=== PATIENT | male | born 1975 | race Hispanic/Latino ===

== ENCOUNTER 2019-06-06 13:49 | Emergency (ER) | payer BC ==
--- NOTE | 2019-06-06 14:54 | RAD REPORT ---
EXAM DESCRIPTION: CT - Head Brain Wo Cont - 06/06/2019 2:47 pm CLINICAL HISTORY: Headache, dizziness, left-sided facial pain COMPARISON: None. TECHNIQUE: Axial 5 mm thick images of the head were obtained without IV contrast. All CT scans are performed using dose optimization technique as appropriate and may include automated exposure control or mA/KV adjustment according to patient size. FINDINGS: No intracranial hemorrhage, mass, edema or shift of mid-line structures. No acute infarcti on changes seen. No abnormal extra-axial fluid collections. Ventricles are normal. Left-sided mastoid air cells are normally aerated. Middle ear is clear. There is opacification of the right side mastoid air cells. Patchy mucosal thickening seen in each maxillary sinus. No air-fluid l evel. No acute bony findings. IMPRESSION: No acute intracranial finding. Right mastoid air cell opacification. Patchy mucosal thickening in the maxillary sinuses.
[2019-06-06] MEDS ORDERED: KETOROLAC 30 MG/ML INJ ONE (15:54)
[2019-06-06] MEDS ORDERED: dexAMETHasone 10 MG/ML VIAL ONE (15:54)
[2019-06-06] MEDS ORDERED: NA CHLORIDE 0.9% 1,000 ML ONE (15:54)
[2019-06-06] MEDS ORDERED: NA CHLORIDE 0.9% 50 ML IV ONE (15:54)
[2019-06-06] MEDS ORDERED: METOCLOPRAMIDE 10 MG/2mL INJ ONE (15:54)
[2019-06-06] MEDS ORDERED: DIPHENHYDRAMINE 50 MG/ML VIAL ONE (15:54)
[2019-06-06 16:42] LABS: Absolute Lymphocytes (CBC) 2.6 K/uL (0.7-4.9); Basophils % 0.6 % (0-1.3); Hematocrit 48.6 % (39.6-49.0); Lymphocytes % 30.5 % (15.3-44.8); MPV 8.6 fL (7.6-11.3); RBC Red Blood Cell Count 5.17 M/uL (4.33-5.43)
[2019-06-06 16:59] LABS: Albumin 4.4 g/dL (3.4-5.0); Bilirubin Direct 0.3 mg/dL (0-0.2); Bilirubin Total 1.4 mg/dL (0.2-1.0); Potassium 3.7 mmol/L (3.5-5.1); Protein, Total 8.2 g/dL (6.4-8.2)
--- NOTE | 2019-06-06 17:05 | ER ---
Nurse's Notes [facility] Name: Hayden Armando Age: 44 yrs Sex: Male : 1975 Arrival Date: 06/06/2019 Time: 13:57 Bed 14 Private MD: Diagnosis: Headache Presentation: 06/06 14:32 Presenting complaint: Patient states: Dizziness for the past 2 days, today he started aj1 to have a sharp pain that radiates down the left side of his face and down into his neck. Reports generalized weakness Ambulated to triage with a steady gait, speech is clear. He spoke to his doctor who advised him to come to the emergency. Transition of care: patient was not received from another setting of care. Onset of symptoms was June 04, 2019. Risk Assessment: Do you want to hurt yourself or someone else? Patient reports no desire to harm self or others. Initial Sepsis Screen: Does the patient meet any 2 criteria? HR > 90 bpm. No. Patient's initial sepsis screen is negative. Does the patient have a suspected source of infection? No. Patient's initial sepsis screen is negative. Care prior to arrival: None. 14:32 Method Of Arrival: Ambulatory aj1 14:32 Acuity: FREDI 3 aj1 Triage Assessment: 14:34 Headache History: Denies prior headaches. General: Appears in no apparent distress. aj1 uncomfortable, Behavior is calm. Pain: Complains of pain in left cheek, left eye, left catholic, left jaw and neck Pain does not radiate. Pain currently is 8 out of 10 on a pain scale. Quality of pain is described as sharp, Pain began 2-3 days ago. Also complains of dizziness. Neuro: Level of Consciousness is awake, alert, obeys commands, Oriented to person, place, time, situation, Moves all extremities. Gait is steady, Speech is normal, Facial symmetry appears normal, Reports dizziness, headache. Cardiovascular: Patient's skin is warm and dry. Respiratory: Airway is patent Respiratory effort is even, unlabored, Respiratory pattern is regular, symmetrical. Historical: - Allergies: 14:34 No Known Allergies; aj1 - Home Meds: 16:15 atorvastatin 40 mg oral tab 1 tab once daily [Active]; lisinopril 40 mg Oral tab 1 tab ph once daily [Active]; chlorthalidone 25 mg Oral tab 1 tab once daily [Active]; carvedilol 6.25 mg oral tab 1 tab 2 times per day [Active]; - PMHx: 14:34 Myocardial infarction; 5 cardiac stents; Hypertension; aj1 - Immunization history:: Adult Immunizations unknown. - Social history:: Smoking status: Patient/guardian denies using tobacco. - Ebola Screening: : Patient denies travel to an Ebola-affected area in the 21 days before illness onset. Screenin:26 Abuse screen: Denies threats or abuse. Denies injuries from another. Nutritional ph screening: No deficits noted. Tuberculosis screening: No symptoms or risk factors identified. Fall Risk None identified. Assessment: 15:15 General: Appears in no apparent distress. uncomfortable, obese, well groomed, Behavior ph is calm, cooperative, appropriate for age, Denies fever, feeling ill. Pain: Complains of pain in left catholic and left eye. Neuro: Level of Consciousness is awake, alert, obeys commands, Oriented to person, place, time, situation, Reports dizziness, headache in left frontal area, photophobia. Cardiovascular: Capillary refill < 3 seconds in bilateral fingers Patient's skin is warm and dry. Respiratory: Airway is patent Respiratory effort is even, unlabored, Respiratory pattern is regular, symmetrical. Derm: Skin is intact, is healthy with good turgor, Skin is pink, warm \T\ dry. Musculoskeletal: Circulation, motion, and sensation intact. Range of motion: intact in all extremities. 16:30 Reassessment: Patient appears in no apparent distress at this time. Patient and/or ph family updated on plan of care and expected duration. Pain level reassessed. Patient is alert, oriented x 3, equal unlabored respirations, skin warm/dry/pink. Pt resting quietly. 17:36 Reassessment: Patient appears in no apparent distress at this time. Patient and/or ph family updated on plan of care and expected duration. Pain level reassessed. Patient is alert, oriented x 3, equal unlabored respirations, skin warm/dry/pink. Vital Signs: 14:34 BP 147 / 97; Pulse 98; Resp 18; Temp 98.7; Pulse Ox 100% on R/A; Weight 117.93 kg (R); aj1 Height 5 ft. 9 in. (175.26 cm) (R); 16:25 BP 158 / 97; Pulse 74; Resp 18; Pulse Ox 98% ; Pain 6/10; ph 17:32 BP 151 / 89; Pulse 81; Resp 18; Temp 98.0; Pulse Ox 99% on R/A; Pain 2/10; ph 14:34 Body Mass Index 38.39 (117.93 kg, 175.26 cm) aj1 [place] Coma Score: 17:04 Eye Response: spontaneous(4). Verbal Response: oriented(5). Motor Response: obeys cp commands(6). Total: 15. ED Course: 13:57 Patient arrived in ED. as 14:33 Triage completed. aj1 14:34 Arm band placed on Patient placed in waiting room, Patient notified of wait time. aj1 14:47 Lily Graham, RN is Primary Nurse. ph 14:48 CT Head Brain wo Cont In Process Unspecified. EDMS 15:24 Ayan Monteiro PA is PHCP. cp 15:24 Ayan Easley MD is Attending Physician. cp 16:26 Patient has correct armband on for positive identification. Bed in low position. Call ph light in reach. Side rails up X 1. Pulse ox on. NIBP on. Door closed. Noise minimized. Lights dimmed. Warm blanket given. 16:26 Inserted saline lock: 20 gauge in right antecubital area, using aseptic technique. ph Blood collected. 17:32 No provider procedures requiring assistance completed. IV discontinued, intact, ph bleeding controlled, No redness/swelling at site. Pressure dressing applied. Administered Medications: 16:15 Drug: NS 0.9% 1000 ml Route: IV; Rate: 1 bolus; Site: right antecubital; ph 17:31 Follow up: Response: No adverse reaction; IV Status: Completed infusion ph 16:15 Drug: TORadol 30 mg Route: IVP; Site: right antecubital; ph 17:31 Follow up: Response: No adverse reaction; Pain is decreased ph 16:16 Drug: Benadryl 25 mg Route: IVP; Site: right antecubital; ph 17:31 Follow up: Response: No adverse reaction ph 16:17 Drug: Decadron - Dexamethasone 10 mg Route: IVP; Site: right antecubital; ph 17:31 Follow up: Response: No adverse reaction ph 16:20 Drug: Reglan 10 mg Route: IVP; Site: right antecubital; ph 17:31 Follow up: Response: No adverse reaction; Pain is decreased ph Outcome: 17:05 Discharge ordered by . cp 17:32 Discharged to home ambulatory. ph 17:32 Condition: improved 17:32 Discharge instructions given to patient, Instructed on discharge instructions, follow up and referral plans. medication usage, Demonstrated understanding of instructions, follow-up care, medications, Prescriptions given X 3. 17:37 Patient left the ED. ph Signatures: Dispatcher [employer] EDMS Marcelina Mar RN RN aj1 Tejal Limon Patricia, RN RN ph Ayan Monteiro, PA PA cp Corrections: (The following items were deleted from the chart) 14:36 14:32 Presenting complaint: Patient states: Dizziness for the past 2 days, today he aj1 started to have a sharp pain that radiates down the left side of his face and down into his neck. Reports generalized weakness Ambulated to triage with a steady gait, speech is clear. He spoke to his doctor who advised him to come to the emergency. aj1
--- NOTE | 2019-06-06 17:05 | EDPHYS ---
Physician Documentation [facility] Name: Hayden Armando Age: 44 yrs Sex: Male : 1975 Arrival Date: 06/06/2019 Time: 13:57 Bed 14 Private MD: ED Physician Ayan Easley HPI: 06/06 15:30 This 44 yrs old Male presents to ER via Ambulatory with complaints of cp Headache, Eye Pain. 15:30 The patient complains of pain to the left eye and left side of head. Onset: The cp symptoms/episode began/occurred 2 day(s) ago, and became worse today. 15:30 The patient describes the headache as sharp. Associated signs and symptoms: Pertinent cp positives: dizziness, weakness, Pertinent negatives: altered mental status, fever, neck stiffness, paresthesias, vision loss, vomiting. Severity of symptoms: in the emergency department the pain a " 8" out of "10". Historical: - Allergies: 14:34 No Known Allergies; aj1 - Home Meds: 16:15 atorvastatin 40 mg oral tab 1 tab once daily [Active]; lisinopril 40 mg Oral tab 1 tab ph once daily [Active]; chlorthalidone 25 mg Oral tab 1 tab once daily [Active]; carvedilol 6.25 mg oral tab 1 tab 2 times per day [Active]; - PMHx: 14:34 Myocardial infarction; 5 cardiac stents; Hypertension; aj1 - Immunization history:: Adult Immunizations unknown. - Social history:: Smoking status: Patient/guardian denies using tobacco. - Ebola Screening: : Patient denies travel to an Ebola-affected area in the 21 days before illness onset. ROS: 15:35 Constitutional: Negative for body aches, chills, fever, poor PO intake. cp 15:35 Eyes: Positive for photophobia, left eye pain, Negative for discharge, redness. cp 15:35 Cardiovascular: Negative for chest pain, palpitations. 15:35 Respiratory: Negative for cough, shortness of breath, wheezing. 15:35 Abdomen/GI: Negative for abdominal pain, vomiting, diarrhea, constipation. 15:35 Back: Negative for pain at rest, pain with movement, radiated pain. 15:35 Skin: Negative for cellulitis, rash. 15:35 Neuro: Positive for headache, Negative for altered mental status, numbness, tingling, weakness. 15:35 All other systems are negative. Exam: 15:42 Constitutional: The patient appears in no acute distress, alert, awake, cp non-diaphoretic, non-toxic, well developed, well nourished, obese. 15:42 Head/Face: Normocephalic, atraumatic. cp 15:42 Eyes: Periorbital structures: appear normal, Pupils: equal, round, and reactive to light and accomodation, Extraocular movements: intact throughout, Conjunctiva: normal, no exudate, no injection, Sclera: no appreciated abnormality, Lids and lashes: appear normal, bilaterally. 15:42 ENT: External ear(s): are unremarkable, Ear canal(s): are normal, clear, TM's: bulging, is not appreciated, bilaterally, dullness, bilaterally, erythema, is not appreciated, bilaterally, Nose: is normal, Mouth: is normal, Posterior pharynx: is normal, airway is patent, no erythema, no exudate. 15:42 Neck: ROM/movement: is normal, is supple, without pain, no range of motions limitations, no meningismus, no nuchal rigidity, Lymph nodes: no appreciated lymphadenopathy. 15:42 Chest/axilla: Inspection: normal, Palpation: is normal, no crepitus, no tenderness. 15:42 Cardiovascular: Rate: normal, Rhythm: regular, Edema: is not appreciated, JVD: is not appreciated. 15:42 Respiratory: the patient does not display signs of respiratory distress, Respirations: normal, no use of accessory muscles, no retractions, no splinting, no tachypnea, labored breathing, is not present, Breath sounds: are clear throughout, no decreased breath sounds, no stridor, no wheezing. 15:42 Abdomen/GI: Inspection: abdomen appears normal, Palpation: abdomen is soft and non-tender, in all quadrants. 15:42 Skin: no rash present. 15:42 Neuro: Orientation: to person, place \\T\\ time. Mentation: is normal, Cerebellar function: is grossly normal, Motor: moves all fours, strength is normal, Sensation: no obvious gross deficits. Vital Signs: 14:34 BP 147 / 97; Pulse 98; Resp 18; Temp 98.7; Pulse Ox 100% on R/A; Weight 117.93 kg (R); aj1 Height 5 ft. 9 in. (175.26 cm) (R); 16:25 BP 158 / 97; Pulse 74; Resp 18; Pulse Ox 98% ; Pain 6/10; ph 17:32 BP 151 / 89; Pulse 81; Resp 18; Temp 98.0; Pulse Ox 99% on R/A; Pain 2/10; ph 14:34 Body Mass Index 38.39 (117.93 kg, 175.26 cm) aj1 [place] Coma Score: 17:04 Eye Response: spontaneous(4). Verbal Response: oriented(5). Motor Response: obeys cp commands(6). Total: 15. MDM: 15:24 Patient medically screened. cp 16:00 Differential diagnosis: cluster headache, migraine, otitis, subarachnoid bleed, cp subdural hematoma, tension headache, trigeminal neuralgia. 17:04 Data reviewed: vital signs, nurses notes, lab test result(s), radiologic studies, CT cp scan, and as a result, I will discharge patient. Counseling: I had a detailed discussion with the patient and/or guardian regarding: the historical points, exam findings, and any diagnostic results supporting the discharge/admit diagnosis, lab results, radiology results, the need for outpatient follow up, a family practitioner, to return to the emergency department if symptoms worsen or persist or if there are any questions or concerns that arise at home. Response to treatment: improved, and as a result, I will discharge patient. 06/06 15:32 Order name: Basic Metabolic Panel; Complete Time: 17:01 06/06 17:01 Interpretation: Normal except: GLUC 117; GFR 71. 06/06 15:32 Order name: CBC with Diff; Complete Time: 17: 06/06 14:37 Order name: CT Head Brain wo Cont; Complete Time: 15:31 [facility] 06/06 15:32 Order name: Creatinine for Radiology; Complete Time: 17:01 06/06 15:32 Order name: Hepatic Function; Complete Time: 17:01 06/06 17:01 Interpretation: Normal except: AST 60; ALT 116; BILIT 1.4; BILID 0.3; GLOB 3.8. 06/06 15:32 Order name: IV Saline Lock; Complete Time: 16:28 06/06 15:32 Order name: Labs collected and sent; Complete Time: 16:28 cp Administered Medications: 16:15 Drug: NS 0.9% 1000 ml Route: IV; Rate: 1 bolus; Site: right antecubital; ph 17:31 Follow up: Response: No adverse reaction; IV Status: Completed infusion ph 16:15 Drug: TORadol 30 mg Route: IVP; Site: right antecubital; ph 17:31 Follow up: Response: No adverse reaction; Pain is decreased ph 16:16 Drug: Benadryl 25 mg Route: IVP; Site: right antecubital; ph 17:31 Follow up: Response: No adverse reaction ph 16:17 Drug: Decadron - Dexamethasone 10 mg Route: IVP; Site: right antecubital; ph 17:31 Follow up: Response: No adverse reaction ph 16:20 Drug: Reglan 10 mg Route: IVP; Site: right antecubital; ph 17:31 Follow up: Response: No adverse reaction; Pain is decreased ph Disposition: 17:45 Chart complete. cp Disposition: 06/06/19 17:05 Discharged to Home. Impression: Headache. - Condition is Stable. - Discharge Instructions: General Headache Without Cause. - Prescriptions for Fiorinal 50- 325-40 mg Oral Capsule - take 1 capsule by ORAL route every 4 hours As needed - not to exceed 6 capsules per day; 20 capsule. Ibuprofen 800 mg Oral Tablet - take 1 tablet by ORAL route every 8 hours As needed take with food; 30 tablet. Zofran 4 mg Oral Tablet - take 1 tablet by ORAL route every 12 hours As needed; 20 tablet. - Medication Reconciliation Form, Thank You Letter, Antibiotic Education, Prescription Opioid Use form. - Follow up: Private Physician; When: 2 - 3 days; Reason: Recheck today's complaints. - Problem is new. - Symptoms have improved. Addendum: 06/08/2019 08:16 Co-signature as Attending Physician, Ayan Easley MD I agree with the assessment and c hurst plan of care. Signatures: Dispatcher [employer] Marcelina Vicente RN RN aj1 Ayan Easley MD MD cha Hall, Patricia, RN RN ph Ayan Monteiro PA PA Corrections: (The following items were deleted from the chart) 06/06 17:37 17:05 06/06/2019 17:05 Discharged to Home. Impression: Headache. Condition is Stable. ph Forms are Medication Reconciliation Form, Thank You Letter, Antibiotic Education, Prescription Opioid Use. Follow up: Private Physician; When: 2 - 3 days; Reason: Recheck today's complaints. Problem is new. Symptoms have improved. cp
== END 2019-06-06 17:37 | disposition home or self-care (01) ==
LOC: ER 13:49
DX: R51 Headache (principal); I25.2 Old myocardial infarction; I10 Essential (primary) hypertension; Z95.5 Presence of coronary angioplasty implant and graft
CPT/HCPCS: 96361; 85025; 80048; 36415; 80076; 70450; 96375; 96374; 99284; J2765; J1100; J7030

== ENCOUNTER 2019-10-22 17:13 | Observation (INO) | payer BC, OTHER ==
[2019-10-22 18:00] LABS: Basophils % 0.7 % (0-1.3); Lymphocytes % 27.8 % (15.3-44.8); MPV 8.6 fL (7.6-11.3); RBC Red Blood Cell Count 4.82 M/uL (4.33-5.43)
[2019-10-22 18:02] LABS: Protime INR 1.09
[2019-10-22] MEDS ORDERED: ASPIRIN 81 MG CHEWABLE TABLET ONE (18:02)
[2019-10-22 18:19] LABS: ALT/SGPT 74 U/L (12-78); AST/SGOT 37 U/L (15-37); Alkaline Phosphatase 72 U/L (45-117); BUN Blood Urea Nitrogen 13 mg/dL (7-18); Bicarbonate 29 mmol/L (21-32); Bilirubin Direct 0.3 mg/dL (0-0.2); Bilirubin Total 1.1 mg/dL (0.2-1.0); Glucose Level 93 mg/dL (74-106); Magnesium 1.9 mg/dL (1.8-2.4); NT PRO-BNP 21 pg/mL (<125); Potassium 3.8 mmol/L (3.5-5.1); Protein, Total 7.6 g/dL (6.4-8.2); Sodium Level 139 mmol/L (136-145); Troponin (Emerg Dept Use Only) < 0.02 ng/mL (0.0-0.045)
--- NOTE | 2019-10-22 19:07 | RAD REPORT ---
EXAM DESCRIPTION: RAD - Chest Single View - 10/22/2019 6:47 pm CLINICAL HISTORY: CHEST PAIN COMPARISON: <Comparisons>None. TECHNIQUE: AP portable chest image was obtained 10/22/2019 6:47 pm . FINDINGS: Lung volumes are low. No significant failure or volume overload. No focal lung process. He art and vasculature are normal. No measurable pleural effusion and no pneumothorax. No acute bony abn ormality seen. No acute aortic findings suspected. IMPRESSION: No acute cardiopulmonary process.
--- NOTE | 2019-10-22 20:37 | EDPHYS ---
Physician Documentation [facility] Name: Hayden Armando Age: 44 yrs Sex: Male : 1975 Arrival Date: 10/22/2019 Time: 17:19 Bed 23 Private MD: ED Physician Josh Mojica HPI: 10/22 18:00 This 44 yrs old Male presents to ER via Ambulatory with complaints of Chest la1 Pain, Dizziness. 18:00 The patient or guardian reports chest pain that is located primarily in the substernal la1 area. Onset: this morning. The pain does not radiate. The chest pain is described as squeezing. Duration: The patient or guardian reports multiple episodes, that have now resolved. Modifying factors: The symptoms are alleviated by nothing. the symptoms are aggravated by nothing. Severity of pain: At its worst the pain was moderate. The patient has experienced similar episodes in the past, but today's symptoms are worse, more painful. Pt reports that he has had three episodes of chest pain with associate dizziness, chest pain, shortness of breath. These episodes are worse that the episodes he has experienced in the past. Historical: - Allergies: 17:42 No Known Allergies; iw - Home Meds: 17:42 atorvastatin 40 mg Oral tab 1 tab once daily [Active]; carvedilol 6.25 mg Oral tab 1 iw tab 2 times per day [Active]; lisinopril 40 mg Oral tab 1 tab once daily [Active]; chlorthalidone 25 mg Oral tab 1 tab once daily [Active]; aspirin 81 mg Oral TbEC 1 tab once daily [Active]; - PMHx: 17:42 5 cardiac stents; Hypertension; Myocardial infarction; iw - Immunization history:: Adult Immunizations up to date. - Social history:: Smoking status: Patient denies any tobacco usage or history of. - Ebola Screening: : Patient negative for fever greater than or equal to 101.5 degrees Fahrenheit, and additional compatible Ebola Virus Disease symptoms Patient denies exposure to infectious person Patient denies travel to an Ebola-affected area in the 21 days before illness onset No symptoms or risks identified at this time. ROS: 20:31 Constitutional: Negative for fever, chills, and weight loss, Eyes: Negative for injury, la1 pain, redness, and discharge, ENT: Negative for injury, pain, and discharge, Neck: Negative for injury, pain, and swelling. 20:31 Respiratory: Negative for shortness of breath, cough, wheezing, and pleuritic chest pain, Abdomen/GI: Negative for abdominal pain, nausea, vomiting, diarrhea, and constipation, Back: Negative for injury and pain, MS/Extremity: Negative for injury and deformity, Neuro: Negative for headache, weakness, numbness, tingling, and seizure. 20:31 Cardiovascular: Positive for chest pain, of the chest, has now resolved. Exam: 20:34 Constitutional: This is a well developed, well nourished patient who is awake, alert, la1 and in no acute distress. Head/Face: Normocephalic, atraumatic. Eyes: Periorbital areas with no swelling, redness, or edema. ENT: Mucous membranes moist. Neck: Trachea midline. No Meningismus. Chest/axilla: Normal chest wall appearance and motion. Nontender with no deformity. No lesions are appreciated. Cardiovascular: Regular rate and rhythm with a normal S1 and S2. No gallops, murmurs, or rubs. Normal PMI, no JVD. No pulse deficits. Respiratory: Lungs have equal breath sounds bilaterally, clear to auscultation. No rales, rhonchi or wheezes noted. No increased work of breathing, no retractions or nasal flaring. Abdomen/GI: Soft, non-tender, with normal bowel sounds. No guarding or rebound. No evidence of tenderness throughout. Back: No spinal tenderness. No costovertebral tenderness. Full range of motion. MS/ Extremity: Pulses equal, no cyanosis. Neurovascular intact. Full, normal range of motion. Vital Signs: 17:42 BP 148 / 94; Pulse 84; Resp 16; Temp 98.4; Pulse Ox 98% on R/A; Weight 115.67 kg; iw Height 5 ft. 9 in. (175.26 cm); Pain 8/10; 18:50 BP 141 / 90; Pulse 67; Resp 17 S; Pulse Ox 96% on R/A; ca1 19:45 BP 152 / 103; Pulse 69; Resp 16; Pulse Ox 97% on R/A; jb4 20:58 BP 155 / 97; Pulse 65; Resp 16; Temp 98.1(O); Pulse Ox 99% on R/A; ar5 21:50 BP 140 / 94; Pulse 70; Resp 16; Pulse Ox 98% on R/A; jb4 17:42 Body Mass Index 37.66 (115.67 kg, 175.26 cm) iw MDM: 17:43 Patient medically screened. la1 20:35 Differential diagnosis: acute myocardial infarction, anxiety, coronary artery disease la1 chest wall pain, congestive heart failure gastroesophageal reflux disease (GERD), pericarditis, pleurisy, pneumonia, unstable angina. ECG:. The patient was given aspirin in the Emergency Department. Data reviewed: vital signs, nurses notes, lab test result(s), EKG, radiologic studies, I have discussed the patient's presentation/case with the attending Emergency Department Physician; and as a result, I will admit patient. Data interpreted: Pulse oximetry: on room air is 97 %. Interpretation: normal. Test interpretation: by ED physician or midlevel provider: ECG, plain radiologic studies. Counseling: I had a detailed discussion with the patient and/or guardian regarding: the historical points, exam findings, and any diagnostic results supporting the discharge/admit diagnosis, lab results, radiology results, the need for further work-up and treatment in the hospital. 10/22 17:43 Order name: Basic Metabolic Panel; Complete Time: 18:35 10/22 17:43 Order name: CBC with Diff; Complete Time: 18:07 10/22 17:43 Order name: LFT's; Complete Time: 18:35 10/22 17:43 Order name: Magnesium; Complete Time: 18:35 10/22 17:43 Order name: NT PRO-BNP; Complete Time: 18:35 10/22 17:43 Order name: PT-INR; Complete Time: 18:07 10/22 17:43 Order name: Troponin (emerg Dept Use Only); Complete Time: 18:35 10/22 21:37 Order name: CBC with Automated Diff EDMS 10/22 21:37 Order name: CBC with Automated Diff EDMS 10/22 21:37 Order name: CKMB Creatine Kinase MB EDMS 10/22 21:37 Order name: CKMB Creatine Kinase MB EDMS 10/22 21:37 Order name: CKMB Creatine Kinase MB EDMS 10/22 21:37 Order name: CKMB Creatine Kinase MB EDMS 10/22 21:37 Order name: Troponin I [facility] 10/22 17:43 Order name: XRAY Chest (1 view); Complete Time: 19:17 10/22 21:37 Order name: Echo with Doppler [facility] 10/22 21:37 Order name: Troponin I [facility] 10/22 21:37 Order name: Troponin I [facility] 10/22 21:37 Order name: Troponin I [facility] 10/22 21:37 Order name: Comprehensive Metabolic Panel [facility] 10/22 21:37 Order name: Comprehensive Metabolic Panel [facility] 10/22 21:37 Order name: Protime (+INR) [facility] 10/22 21:37 Order name: Protime (+INR) [facility] 10/22 21:37 Order name: Magnesium [facility] 10/22 21:37 Order name: Magnesium [facility] 10/22 21:37 Order name: Lipid Profile [facility] 10/22 21:37 Order name: Lipid Profile [facility] 10/22 21:37 Order name: Thyroid Stimulating Hormone [facility] 10/22 21:37 Order name: Thyroid Stimulating Hormone [facility] 10/22 21:37 Order name: Urine Drug Screen [facility] 10/22 17:43 Order name: EKG; Complete Time: 17:44 10/22 17:43 Order name: Cardiac monitoring; Complete Time: 18:03 10/22 17:43 Order name: EKG - Nurse/Tech; Complete Time: 18:03 10/22 17:43 Order name: IV Saline Lock; Complete Time: 18:04 10/22 17:43 Order name: Labs collected and sent; Complete Time: 18:04 10/22 17:43 Order name: O2 Per Protocol; Complete Time: 18:04 10/22 17:43 Order name: O2 Sat Monitoring; Complete Time: 18:04 10/22 21:37 Order name: Respiratory Therapy Consult [facility] 10/22 21:37 Order name: Heart Healthy [facility] Administered Medications: 18:02 Drug: Aspirin Chewable Tablet 324 mg Route: PO; ca1 21:34 Follow up: Response: No adverse reaction mg2 Disposition: 10/23 08:13 Co-signature as Attending Physician, Josh Mojica MD. rn Disposition: 10/22/19 20:36 Hospitalization ordered by Marija Hammond for Observation. Preliminary diagnosis is Chest pain, unspecified. - Bed requested for Telemetry/MedSurg (observation). - Status is Observation. jb4 - Condition is Stable. - Problem is new. - Symptoms have improved. UTI on Admission? No Signatures: Dispatcher [employer] EDNatacha Weaver, RN RN Josh Bruce MD MD rn Attema, Lee, CLINICAL APPLICATION SPECIALIST-C CLINICAL APPLICATION SPECIALIST-Cla1 Mendy Garcia RN RN tl1 Chip Fontana RN RN jb4 Zuleima Bolden RN RN ca1 Froy Sherman RN mg2 Corrections: (The following items were deleted from the chart) 10/22 20:55 20:36 Hospitalization Ordered by Marija Hammond MD for Observation. Preliminary diagnosis tl1 is Chest pain, unspecified. Bed requested for Telemetry/MedSurg (observation). Status is Observation. Condition is Stable. Problem is new. Symptoms have improved. UTI on Admission? No. la1 21:58 20:55 10/22/2019 20:36 Hospitalization Ordered by Marija Hammond MD for Observation. jb4 Preliminary diagnosis is Chest pain, unspecified. Bed requested for Telemetry/MedSurg (observation). Status is Observation. Condition is Stable. Problem is new. Symptoms have improved. UTI on Admission? No. tl1
--- NOTE | 2019-10-22 20:37 | ER ---
Nurse's Notes [facility] Name: Hayden Armando Age: 44 yrs Sex: Male : 1975 Arrival Date: 10/22/2019 Time: 17:19 Bed 23 Private MD: Diagnosis: Chest pain, unspecified Presentation: 10/22 17:40 Presenting complaint: Patient states: chest pains earlier today, also feels dizzy, c/o iw left sided chest pain, sharp, hx of NC with 5 stents. Transition of care: patient was not received from another setting of care. Onset of symptoms was October 22, 2019. Risk Assessment: Do you want to hurt yourself or someone else? Patient reports no desire to harm self or others. Initial Sepsis Screen: Does the patient meet any 2 criteria? No. Patient's initial sepsis screen is negative. Does the patient have a suspected source of infection? No. Patient's initial sepsis screen is negative. Care prior to arrival: None. 17:40 Method Of Arrival: Ambulatory iw 17:40 Acuity: FREDI 2 iw Historical: - Allergies: 17:42 No Known Allergies; iw - Home Meds: 17:42 atorvastatin 40 mg Oral tab 1 tab once daily [Active]; carvedilol 6.25 mg Oral tab 1 iw tab 2 times per day [Active]; lisinopril 40 mg Oral tab 1 tab once daily [Active]; chlorthalidone 25 mg Oral tab 1 tab once daily [Active]; aspirin 81 mg Oral TbEC 1 tab once daily [Active]; - PMHx: 17:42 5 cardiac stents; Hypertension; Myocardial infarction; iw - Immunization history:: Adult Immunizations up to date. - Social history:: Smoking status: Patient denies any tobacco usage or history of. - Ebola Screening: : Patient negative for fever greater than or equal to 101.5 degrees Fahrenheit, and additional compatible Ebola Virus Disease symptoms Patient denies exposure to infectious person Patient denies travel to an Ebola-affected area in the 21 days before illness onset No symptoms or risks identified at this time. Screenin:04 Abuse screen: Denies threats or abuse. Denies injuries from another. Nutritional ca1 screening: No deficits noted. Tuberculosis screening: No symptoms or risk factors identified. Fall Risk IV access (20 points). Assessment: 18:04 General: Appears in no apparent distress. comfortable, Behavior is calm, cooperative, ca1 appropriate for age. Pain: Complains of pain in anterior aspect of left upper chest Pain radiates to anterior aspect of left shoulder Pain currently is 5 out of 10 on a pain scale. at worst was 10 out of 10 on a pain scale. Quality of pain is described as sharp, Pain began 11 hours ago Is intermittent. Neuro: Level of Consciousness is awake, alert, obeys commands, Oriented to person, place, time, situation, Appropriate for age. Neuro: Reports dizziness. Cardiovascular: Reports shortness of breath, Heart tones S1 S2 present Capillary refill < 3 seconds Patient's skin is warm and dry. Rhythm is sinus rhythm. Respiratory: Airway is patent Respiratory effort is even, unlabored, Respiratory pattern is regular, symmetrical, Breath sounds are clear bilaterally. GI: Abdomen is round non-distended, Bowel sounds present X 4 quads. Abd is soft and non tender X 4 quads. : No deficits noted. No signs and/or symptoms were reported regarding the genitourinary system. EENT: No deficits noted. No signs and/or symptoms were reported regarding the EENT system. Derm: Skin is intact, is healthy with good turgor, Skin is pink, warm \T\ dry. Musculoskeletal: Circulation, motion, and sensation intact. Capillary refill < 3 seconds, Range of motion: intact in all extremities. 19:08 Reassessment: Patient appears in no apparent distress at this time. Patient and/or jb4 family updated on plan of care and expected duration. Pain level reassessed. Patient is alert, oriented x 3, equal unlabored respirations, skin warm/dry/pink. PT reports feeling better and more calm. Patient states feeling better. 19:11 Reassessment: Patient appears in no apparent distress at this time. No changes from ca1 previously documented assessment. Patient and/or family updated on plan of care and expected duration. Pain level reassessed. Patient is alert, oriented x 3, equal unlabored respirations, skin warm/dry/pink. 20:15 Reassessment: Patient appears in no apparent distress at this time. Patient and/or jb4 family updated on plan of care and expected duration. Pain level reassessed. Patient is alert, oriented x 3, equal unlabored respirations, skin warm/dry/pink. 21:51 Reassessment: Patient appears in no apparent distress at this time. Patient and/or jb4 family updated on plan of care and expected duration. Pain level reassessed. Patient is alert, oriented x 3, equal unlabored respirations, skin warm/dry/pink. Vital Signs: 17:42 BP 148 / 94; Pulse 84; Resp 16; Temp 98.4; Pulse Ox 98% on R/A; Weight 115.67 kg; iw Height 5 ft. 9 in. (175.26 cm); Pain 8/10; 18:50 BP 141 / 90; Pulse 67; Resp 17 S; Pulse Ox 96% on R/A; ca1 19:45 BP 152 / 103; Pulse 69; Resp 16; Pulse Ox 97% on R/A; jb4 20:58 BP 155 / 97; Pulse 65; Resp 16; Temp 98.1(O); Pulse Ox 99% on R/A; ar5 21:50 BP 140 / 94; Pulse 70; Resp 16; Pulse Ox 98% on R/A; jb4 17:42 Body Mass Index 37.66 (115.67 kg, 175.26 cm) iw ED Course: 17:19 Patient arrived in ED. mr 17:41 Triage completed. iw 17:43 Christiano Luther FNP-C is [facility]. la1 17:43 Josh Mojica MD is Attending Physician. la1 17:50 Zuleima Bolden, HEATHER is Primary Nurse. ca1 18:04 Patient has correct armband on for positive identification. Placed in gown. Bed in low ca1 position. Call light in reach. Side rails up X 1. plastic cablemaking machine operator on. Pulse ox on. NIBP on. Warm blanket given. 18:04 No provider procedures requiring assistance completed. Initial lab(s) drawn, by ED ca1 staff, sent to lab. Inserted saline lock: 20 gauge in right antecubital area, using aseptic technique. Blood collected. Patient maintains SpO2 saturation greater than 95% on room air. 18:47 XRAY Chest (1 view) In Process Unspecified. EDMS 19:08 Arm band placed on right wrist. jb4 20:36 Marija Hammond MD is Hospitalizing Provider. la1 21:07 Patient admitted, IV remains in place. jb4 Administered Medications: 18:02 Drug: Aspirin Chewable Tablet 324 mg Route: PO; ca1 21:34 Follow up: Response: No adverse reaction mg2 Outcome: 20:36 Decision to Hospitalize by Provider. la1 21:07 Admitted to Tele accompanied by nurse, via wheelchair, room 410, with chart. jb4 21:07 Condition: stable 21:07 Discharge instructions given to patient, Instructed on the need for admit, Demonstrated understanding of instructions. 21:58 Patient left the ED. jb4 Signatures: Dispatcher [employer] Lala Nuno mr Natacha Quinn, HEATHER RN iw Christiano Luther, PATIENT OFFICE REP-C PATIENT OFFICE REP-Cla1 Chip Fontana RN RN jb4 Froy Sherman RN RN mg2 Cinthia Irby ar5 Zuleima Bolden RN RN ca1
[2019-10-22] MEDS ORDERED: DOCUSATE NA 100 MG CAP PO PRN (21:33)
[2019-10-22] MEDS ORDERED: NITROGLYCERIN 0.4 MG/TAB SL PRN (21:33)
[2019-10-22] MEDS ORDERED: ONDANSETRON 4 MG/2 ML VIAL IV PRN (21:33)
[2019-10-22] MEDS ORDERED: MORPHINE 4 MG/ML SYR IV PRN (21:33)
[2019-10-22] MEDS ORDERED: ACETAMINOPHEN 325 MG TABLET PO PRN (21:33)
--- NOTE | 2019-10-22 21:42 | P.HP ---
Certification for Inpatient Patient admitted to: Observation With expected LOS: <2 Midnights Patient will require the following post-hospital care: None Practitioner: I am a practitioner with admitting privileges, knowledge of patient current condition, hospital course, and medical plan of care. Services: Services provided to patient in accordance with Admission requirements found in Title 42 Section 412.3 of the Code of Federal Regulations Patient History Date of Service: 10/23/19 Reason for admission: chest pain History of Present Illness: fifi stoll is a 44yoM w/ pmhx CAD complicated 5 stents, HTN, HLD, GIGI (non compliant), morbid obesity who presents w/ chest pain. he reports chest pressure w/o radiation similar to the 1 episode of cp he experienced 1 week ago however the difference is that today he had 3 episodes associated w/ dizziness and SOB. he reports that his PCP and cardio are in [place], [place]. he also states that he started have cardiac problems starting 2017 with [facility] hospitalizations 2/2 AMI vs CP. he reports that he has noticed feeling don[place]ue x 1month. he reports that he has not used his CPAP machine for several weeks. he denies fever, chills, cough, sick contacts, N/V, extremity swelling, rashes, sores, orthopnea. he reports that his chest pain symptoms were aggravated w/ lifting and with ambulation. he reports that the chest pain epsiodes lasted 5-10 each episode, resolving on their own. he denies tobacco or etoh or drug use. Allergies No Known Allergies Allergy (Verified 10/22/19 22:20) - Family History Father -: Hypertension, Diabetes Mother -: Liver disease - Social History Smoking Status: Never smoker Alcohol use: No CD- Drugs: No Review of Systems General: Unremarkable Eyes: Unremarkable ENT: Unremarkable Respiratory: SOB with Excertion Cardiovascular: Chest Pain, Light Headedness, As per HPI Gastrointestinal: Unremarkable Genitourinary: Unremarkable Musculoskeletal: Unremarkable Integumentary: Unremarkable Neurological: Other (dizziness) Physical Examination - Physical Exam General: Alert, In no apparent distress, Oriented x3, Cooperative HEENT: Atraumatic Neck: Other (extremely large neck) Respiratory: Normal air movement Cardiovascular: No edema, Normal pulses, No murmurs Capillary refill: <2 Seconds Gastrointestinal: Normal bowel sounds, Soft and benign, Non-distended, No rebound, No guarding Musculoskeletal: No clubbing, No swelling Integumentary: No rashes, No breakdown Neurological: Normal speech, Normal strength at 5/5 x4 extr, Other (gait not tested) External genitalia: Deferred Rectal: Deferred - Studies Laboratory Data (last 24 hrs) 10/22/19 17:50: PT 12.8 H, INR 1.09 10/22/19 17:50: WBC 10.8, Hgb 15.1, Hct 44.0, Plt Count 235 10/22/19 17:50: Sodium 139, Potassium 3.8, BUN 13, Creatinine 1.07, Glucose 93, Magnesium 1.9, Total Bilirubin 1.1 H, AST 37, ALT 74, Alkaline Phosphatase 72 Assessment and Plan - Plan 44yoM admitted w/ chest pain w/ typical s/s admitted to Obs for evaluation tsh, a1c, lipid profile tele, trend CE , supplemental o2 ambulation limited TTE ordered +/- stress test cardio consulted h/o CAD and previous stent placement obtaining CE, labs, on tele for monitoring for arrythmia and will f/u w/ TTE and cardio eval will likely need OSH records. GIGI - pt is non compliant w/ CPAP use RT to eval for CPAP or o2 with sleep morbid obesity pt counsoled on diet and lifestyle changes. dvt ppx- lovenox Discharge Plan: Home - Advance Directives Does patient have a Living Will: No Does patient have a Durable POA for Healthcare: No
[2019-10-22 22:20] VITALS: BMI 40.5
[2019-10-23 01:28] LABS: Barbiturates NEGATIVE (NEGATIVE); Benzodiazepines NEGATIVE (NEGATIVE); Cocaine NEGATIVE (NEGATIVE); METHAMPHETAM NEGATIVE (NEGATIVE); Methadone NEGATIVE (NEGATIVE); Opiates NEGATIVE (NEGATIVE); Phencyclidine NEGATIVE (NEGATIVE); THC Cannibis NEGATIVE (NEGATIVE)
[2019-10-23 02:25] LABS: CKMB Creatine Kinase MB 5.4 ng/mL (0.3-3.6); Troponin I < 0.02 ng/mL (0.0-0.045)
[2019-10-23 04:46] LABS: Hematocrit 43.6 % (39.6-49.0); MPV 8.7 fL (7.6-11.3); RBC Red Blood Cell Count 4.76 M/uL (4.33-5.43)
[2019-10-23 04:47] LABS: Absolute Lymphocytes (CBC) 3.1 K/uL (0.7-4.9); Basophils % 0.6 % (0-1.3); Lymphocytes % 30.4 % (15.3-44.8)
[2019-10-23 05:09] LABS: Protime INR 1.09
[2019-10-23 05:31] LABS: Albumin 3.6 g/dL (3.4-5.0); Bilirubin Total 1.3 mg/dL (0.2-1.0); Magnesium 2.2 mg/dL (1.8-2.4); Potassium 3.7 mmol/L (3.5-5.1); Protein, Total 6.8 g/dL (6.4-8.2)
[2019-10-23 05:39] LABS: Thyroid Stimulating Hormone 4.36 uIU/mL (0.360-3.740)
[2019-10-23] MEDS ORDERED: REGADENOSON 0.4 MG/5 ML SYR IV ONE (08:14)
[2019-10-23] MEDS ORDERED: ENOXAPARIN 40 MG/0.4 ML SQ SCH (09:00)
[2019-10-23] MEDS ORDERED: ASPIRIN 325 MG TAB PO SCH (09:00)
--- NOTE | 2019-10-23 09:57 | RAD REPORT ---
EXAM DESCRIPTION: NM - Rest Stress Cardiac Imaging - 10/23/2019 9:44 am CLINICAL HISTORY: Chest pain COMPARISON: None. TECHNIQUE: The patient was administered approximately 10 mCi of Tc 99m Sestamibi prior to resting SP ECT imaging of the heart. The patient was then administered approximately 30 mCi of Tc 99m Sestamibi following exercise or pharmacologic stress. Multiplanar SPECT images were reviewed. FINDINGS: The end diastolic volume is 114 ml, the end systolic volume is 57 ml, and the ejection fra ction is 50 %. No stress-induced ischemic changes identifiable. Decreased activity along the base and midportion of the inferior wall does not change between rest and stress imaging. This is believed to be diaphragm a ttenuation artifact rather than scarring. IMPRESSION: No stress-induced ischemic change. Decreased activity along the inferior wall is fixed in favored to be diaphragm attenuation artifact r ather than scarring. End-diastolic volume was 114 mL with a 50% EF.
[2019-10-23 10:12] VITALS: O2SAT 97
[2019-10-23 10:25] LABS: CKMB Creatine Kinase MB 4.5 ng/mL (0.3-3.6); Troponin I < 0.02 ng/mL (0.0-0.045)
[2019-10-23 12:11] VITALS: BP 161/91; TEMP 98.2
--- NOTE | 2019-10-23 13:40 | EKG ---
Test Date: 2019-10-22 Test Time: 17:54:53 Glove Examiner: ANTONETTE MEASUREMENT RESULTS: Intervals: Rate: 78 MD: 152 QRSD: 84 QT: 374 QTc: 426 White Owl: P: 32 MD: 152 QRS: -13 T: 18 INTERPRETIVE STATEMENTS: Normal sinus rhythm Minimal voltage criteria for LVH, may be normal variant Borderline ECG No previous ECG available for comparison Electronically Signed On 10-23-19 13:38:04 WASTE MANAGEMENT RECYCLING TECHNICIAN by Fan Wyman
--- NOTE | 2019-10-23 13:42 | CON ---
Date of Consultation: 10/23/[address] Tinsley on 10/22/2019. I saw the patient on 10/23/2019. Reason For Consultation: Dizziness and chest pain. History Of Present Illness: Mr. Armando is 44, has a history of CAD, apparently has had multiple stent s in [place], [place] by Dr. Lewis. He also has a history of dyslipidemia and hypertension. 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 He had left-si ded sharp stabbing chest pain that did not radiate and lasted about 5 minutes. No nausea, vomiting, diaphoresis, PND, orthopnea, pedal edema, palpitations, or syncope. He is already ruled out for an M I. His chest x-ray, EKG, troponin, BNP are all negative. He is asymptomatic now. Past Medical History: As stated above. Allergies: NONE. Review of Systems: Negative. Social History: Negative. Family History: Negative. Medications: Coreg, Lipitor, lisinopril, aspirin, and chlorthalidone. Physical Examination: Vital Signs: Stable. Afebrile. General: No acute distress. HEENT: Negative. Neck: Supple with no bruit. Chest: Clear. Cardiac: Revealed a regular rhythm and rate and an S4 gallop. No murmurs or rubs. Abdomen: Obese, but benign. Extremities: Revealed no clubbing, cyanosis, or edema. Diagnostic Data: Normal. Impression And Plan: Atypical chest pain with dizziness. It could be related to musculoskeletal [address] pain as he was doing some physical work. It could also be related to hypertension. Nevertheless, he was ruled out for myocardial infarction. He goes back and forth to [place] where he lives an d see his rn vascular on a regular basis. His last stress test was 2 years ago. I think an echocar diogram and a stress test are reasonable to do to rule out any restenosis in his stents. We will see what those show. His high blood pressure and dyslipidemia are well controlled. NB/MODL Voice ID: [id number] Report ID: [id number]
--- NOTE | 2019-10-23 14:04 | P.DS ---
Admission Date: 10/22/19 Discharge Date: 10/23/19 Disposition: ROUTINE DISCHARGE Discharge Condition: GOOD Reason for Admission: chest pain Consultations: Staff Certified Nurse Midwife - Problems (1) Chest pain Current Visit: Yes Status: Acute Brief History of Present Illness: "Mr Armando is a 44yoM w/ pmhx CAD complicated 5 stents, HTN, HLD, GIGI (non compliant), morbid obesity who presents w/ chest pain. he reports chest pressure w/o radiation similar to the 1 episode of cp he experienced 1 week ago however the difference is that today he had 3 episodes associated w/ dizziness and SOB. he reports that his PCP and cardio are in [place], [place]. he also states that he started have cardiac problems starting 2017 with [facility] hospitalizations 2/2 AMI vs CP. he reports that he has noticed feeling donahue x 1month. he reports that he has not used his CPAP machine for several weeks. he denies fever, chills, cough, sick contacts, N/V, extremity swelling, rashes, sores, orthopnea. he reports that his chest pain symptoms were aggravated w/ lifting and with ambulation. he reports that the chest pain epsiodes lasted 5-10 each episode, resolving on their own" Hospital Course: Patient was admitted to rule out ACS. Serial troponins were negative with no acute ischemic changes on EKG. He was evaluated by elevator installer apprentice and given his increased factors underwent nuclear stress test which was unremarkable. Echocardiogram was also unremarkable. Patient's pain did resolve. He will be continued on antihypertensive medications at home. She remained hemodynamically stable for discharge and will follow up with his PCP and elevator installer apprentice outpatient. Vital Signs/Physical Exam: Temp Pulse Resp BP Pulse Ox 98.2 F 78 17 161/91 H 95 10/23/19 12:00 10/23/19 12:00 10/23/19 12:00 10/23/19 12:00 10/23/19 12:00 General: Alert, In no apparent distress, Obese HEENT: Atraumatic, PERRLA, EOMI Neck: Supple, JVD not distended Respiratory: Clear to auscultation bilaterally, Normal air movement Cardiovascular: Regular rate/rhythm, Normal S1 S2 Gastrointestinal: Normal bowel sounds, No tenderness Musculoskeletal: No tenderness Integumentary: No rashes Neurological: Normal speech, Normal tone, Normal affect Lymphatics: No axilla or inguinal lymphadenopathy Laboratory Data at Discharge: WBC 10.3 K/uL (4.3-10.9) 10/23/19 04:34 Hgb 15.0 g/dL (13.6-17.9) 10/23/19 04:34 Hct 43.6 % (39.6-49.0) 10/23/19 04:34 Plt Count 210 K/uL (152-406) 10/23/19 04:34 PT 12.8 SECONDS (9.5-12.5) H 10/23/19 04:34 INR 1.09 10/23/19 04:34 Sodium 141 mmol/L (136-145) 10/23/19 04:34 Potassium 3.7 mmol/L (3.5-5.1) 10/23/19 04:34 BUN 15 mg/dL (7-18) 10/23/19 04:34 Creatinine 0.97 mg/dL (0.55-1.3) 10/23/19 04:34 Glucose 91 mg/dL (74-106) 10/23/19 04:34 Magnesium 2.2 mg/dL (1.8-2.4) 10/23/19 04:34 Total Bilirubin 1.3 mg/dL (0.2-1.0) H 10/23/19 04:34 AST 30 U/L (15-37) 10/23/19 04:34 ALT 69 U/L (12-78) 10/23/19 04:34 Alkaline Phosphatase 58 U/L (45-117) 10/23/19 04:34 Troponin I < 0.02 ng/mL (0.0-0.045) 10/23/19 09:56 Triglycerides 225 mg/dL (<150) H 10/23/19 04:34 Cholesterol 173 mg/dL (<200) 10/23/19 04:34 HDL Cholesterol 33 mg/dL (40-60) L 10/23/19 04:34 Cholesterol/HDL Ratio 5.24 10/23/19 04:34 Home Medications: Aspirin [Aspirin EC 81 MG] 81 mg PO DAILY #30 tablet. 10/23/19 Atorvastatin Calcium 40 mg PO DAILY 10/23/19 Chlorthalidone 25 mg PO DAILY 10/23/19 carvediloL [Coreg*] 6.25 mg PO BID 10/23/19 lisinopriL [Lisinopril] 40 mg PO BEDTIME 10/23/19 New Medications: Aspirin [Aspirin EC 81 MG] 81 mg PO DAILY #30 tablet. Diet: AHA Activity: Ad obed Followup: Unknown,U [Primary Care Provider] - 1 Week Hank Salomon MD [ACTIVE - CAN ADMIT] - 1-2 Weeks
--- NOTE | 2019-10-23 14:40 | ECHO ---
HEIGHT: 5 ft 9 in WEIGHT: 274 lb 0 oz DATE OF STUDY: 10/23/[address]: Marija Hammond 2-DIMENSIONAL: YES M.MODE: YES DOPPLER: YES COLOR FLOW: YES TDS: YES PORTABLE: NO DEFINITY: NO BUBBLE STUDY: NO DIAGNOSIS: RECURRENT CHEST PAIN CARDIAC HISTORY: CATHERIZATION: YES SURGERY: NO PROSTHETIC VALVE: NO PACEMAKER: NO MEASUREMENTS (cm) DIASTOLIC (NORMALS) SYSTOLIC (NORMALS) IVSd 1.1 (0.6-1.2) LA Diam 4.0 (1.9-4.0) LVEF 62% LVIDd 4.6 (3.5-5.7) LVIDs 3.1 (2.0-3.5) %FS 33% LVPWd 1.1 (0.6-1.2) Ao Diam 2.0 (2.0-3.7) 2 DIMENSIONAL ASSESSMENT: RIGHT ATRIUM: NORMAL LEFT ATRIUM: NORMAL RIGHT VENTRICLE: NORMAL LEFT VENTRICLE: NORMAL TRICUSPID VALVE: NORMAL MITRAL VALVE: NORMAL PULMONIC VALVE: NORMAL AORTIC VALVE: NORMAL PERICARDIAL EFFUSION: NONE AORTIC ROOT: NORMAL LEFT VENTRICULAR WALL MOTION: NORMAL DOPPLER/COLOR FLOW: NORMAL COMMENTS: NORMAL 2D ECHOCARDIOGRAM WITH DOPPLER. NO WALL MOTION ABNORMALITY. NO EFFUSION. TECHNOLOGIST: Haritha BECERRIL
--- NOTE | 2019-10-23 14:45 | TREADPHA ---
DX: CHEST PAIN, CORONARY ARTERY DISEASE Date of Study: 10/23/2019 Ht: 5 9 Wt: 274 lb 0 oz Consulting Physician: SAMANTHA MEDICATIONS: TYLENOL, ASPIRIN, NITROSTAT, ZOFRAN, LIPITOR, PLAVIX, BLOOD PRESSURE MEDICATION HISTORY: 44 YEAR OLD MALE REPORTED EPISODE OF SHORTNESS OF BREATH, DIZZINESS AND CHEST PAIN. DENIES HAVING CHEST PAIN AT THIS TIME. HISTORY OF STENTS X5, MYOCARIDAL INFARCTION AND HYPERTENSION. PHYSICIAL EXAMINATION: RESTING B.P.: 162/108 RESTING H.R.: 80 RESTING EKG: NORMAL SINUS RHYTHM. PROTOCOL: LEXISCAN EXERCISE TIME: 3:30 B.P. AT PEAK STRESS: 151/104 IMPRESSION: LEXISCAN STRESS TEST PERFORMED. CARDIOLITE INJECTED PER PROTOCOL. NO SUPRAVENTRICULAR TACHYCARDIA, VENTRICULAR TACHYCARDIA OR ARRYTHMIAS NOTED. PATIENT DENIED CHEST PAIN. TOLERATED WELL. SEE NUCLEAR MEDICINE REPORT.
[2019-10-23] MEDS ORDERED: lisinopriL 20 MG TAB PO SCH (21:00)
[2019-10-23] MEDS ORDERED: carvediloL 6.25 MG TAB PO SCH (21:00)
[2019-10-23] MEDS ORDERED: ATORVASTATIN 40 MG TAB PO SCH (21:00)
[2019-10-24] MEDS ORDERED: CHLORTHALIDONE 25 MG TAB PO SCH (09:00)
== END 2019-10-23 15:45 | disposition home or self-care (01) ==
LOC: ER 17:13 → 4TH 21:35
PROVIDERS: ADMIT Internal Medicine; ATTEND Hospitalist
DX: R07.9 Chest pain, unspecified (principal); I25.10 Atherosclerotic heart disease of native coronary artery without angina pectoris; Z95.5 Presence of coronary angioplasty implant and graft; I10 Essential (primary) hypertension; E78.5 Hyperlipidemia, unspecified; G47.33 Obstructive sleep apnea (adult) (pediatric); E66.01 Morbid (severe) obesity due to excess calories; Z68.41 Body mass index [BMI] 40.0-44.9, adult
CPT/HCPCS: 93005; 93017; 93306; 85025 ×2; 80048; 36415; 83735 ×2; 85610 ×2; 80061; 80076; 80307 ×8; 84443; 83036; 84484 ×3; 82553 ×2; 84439; 80053; 83880; 71045; 94760 ×3; 94660; 78452; 99285; J2785; A9500; G0378 ×3; J1650

== ENCOUNTER 2019-12-12 11:21 | Emergency (ER) | payer OTHER ==
[2019-12-12] MEDS ORDERED: ONDANSETRON 4 MG (ODT) TAB ONE (12:23)
--- NOTE | 2019-12-12 12:51 | ER ---
Nurse's Notes [facility] Name: Hayden Armando Age: 44 yrs Sex: Male : 1975 Arrival Date: 12/12/2019 Time: 11:23 Bed 13 Private MD: Diagnosis: Nausea and vomiting;Cough Presentation: 12/11 11:50 Chief complaint: Patient states: sore throat and woke up throwing up x 2 days, wanted dm5 to get checked out since he was a cardiac patient. Pt was concerned about coronavirus. Coronavirus screen: The patient has NOT traveled to a country currently being monitored by the [facility] within the last 14 days. Proceed with normal triage procedures. The patient has NOT had contact with any known and/or suspected case of coronavirus. Proceed with normal triage procedures. Ebola Screen: Patient negative for fever greater than or equal to 101.5 degrees Fahrenheit, and additional compatible Ebola Virus Disease symptoms Patient denies exposure to infectious person. Patient denies travel to an Ebola-affected area in the 21 days before illness onset. No symptoms or risks identified at this time. Initial Sepsis Screen: Does the patient meet any 2 criteria? No. Patient's initial sepsis screen is negative. Does the patient have a suspected source of infection? No. Patient's initial sepsis screen is negative. Risk Assessment: Do you want to hurt yourself or someone else? Patient reports no desire to harm self or others. 11:50 Method Of Arrival: Ambulatory dm5 11:50 Acuity: FREDI 3 dm5 Historical: - Allergies: 12:24 No Known Allergies; ss - PMHx: 12:24 5 cardiac stents; Hypertension; Myocardial infarction; ss - Immunization history:: Adult Immunizations unknown. - Social history:: Smoking status: Patient denies any tobacco usage or history of. Screenin:28 Abuse screen: Denies threats or abuse. Denies injuries from another. Nutritional ss screening: No deficits noted. Tuberculosis screening: Never had TB. Fall Risk None identified. Assessment: 12:28 General: Appears in no apparent distress. comfortable, Behavior is calm, cooperative, ss Reports fever for 1-2 days, feeling ill for 1-2 days, fatigue for 1-2 days, Denies fever. Pain: Complains of pain in general body aches. Neuro: Level of Consciousness is awake, alert, obeys commands, Oriented to person, place, time, situation. Respiratory: Airway is patent Respiratory effort is even, unlabored, Respiratory pattern is regular, symmetrical, Breath sounds are clear bilaterally. Denies cough, shortness of breath pain with respiration, pain with cough, pain with movement. GI: Reports nausea. EENT: Throat is clear Reports sore throat x 2 days. Derm: Skin is intact, is healthy with good turgor, Skin is dry, Skin is pink, warm \T\ dry. normal. Musculoskeletal: Circulation, motion, and sensation intact. Range of motion: intact in all extremities, Swelling absent. Vital Signs: 11:50 BP 150 / 106; Pulse 71; Resp 18; Temp 98.6; Pulse Ox 99% on R/A; Weight 122.47 kg; dm5 Height 5 ft. 9 in. (175.26 cm); Pain 0/10; 11:50 Body Mass Index 39.87 (122.47 kg, 175.26 cm) dm5 ED Course: 11:23 Patient arrived in ED. mr 11:26 Christiano Luther FNP-C is [facility]. la1 11:26 Ricky Garcia MD is Attending Physician. la1 11:54 Triage completed. dm5 12:23 Dasha Soto RN is Primary Nurse. ss 12:24 Arm band placed on right wrist. ss 12:28 Patient has correct armband on for positive identification. Bed in low position. Call ss light in reach. 12:56 No provider procedures requiring assistance completed. Patient did not have IV access ss during this emergency room visit. Administered Medications: 12:20 Drug: Zofran (Ondansetron) 4 mg Route: PO; ss 12:56 Follow up: Response: No adverse reaction; Nausea is decreased ss Outcome: 12:49 Discharge ordered by MD. la1 12:56 Discharged to home ambulatory, with family. ss 12:56 Condition: good 12:56 Discharge instructions given to patient, family, Instructed on discharge instructions, follow up and referral plans. medication usage, Demonstrated understanding of instructions, follow-up care, medications, Prescriptions given X 1. 12:57 Patient left the ED. Signatures: Stephanie Nolasco RN RN dm Lala Chambers mr Dasha Soto RN RN Attema, Christiano, SYSTEMS COORDINATOR-C SYSTEMS COORDINATOR-Cla1
--- NOTE | 2019-12-12 12:51 | EDPHYS ---
Physician Documentation [facility] Name: Hayden Armando Age: 44 yrs Sex: Male : 1975 Arrival Date: 12/12/2019 Time: 11:23 Bed 13 Private MD: ED Physician Ricky Garcia HPI: 12/11 12:46 This 44 yrs old Male presents to ER via Ambulatory with complaints of Flu la1 Symptoms. 12:46 Onset: The symptoms/episode began/occurred 2 day(s) ago. Associated signs and symptoms: la1 Pertinent positives: cough, vomiting. Modifying factors: The patient symptoms are alleviated by nothing, the patient symptoms are aggravated by nothing. The patient has not experienced similar symptoms in the past. pt denies travel outside the country or contact with a person who was tested + for gordon virus. Historical: - Allergies: 12:24 No Known Allergies; ss - PMHx: 12:24 5 cardiac stents; Hypertension; Myocardial infarction; ss - Immunization history:: Adult Immunizations unknown. - Social history:: Smoking status: Patient denies any tobacco usage or history of. ROS: 12:47 Constitutional: Negative for fever, chills, and weight loss, Eyes: Negative for injury, la1 pain, redness, and discharge, ENT: Negative for injury, pain, and discharge, Neck: Negative for injury, pain, and swelling, Cardiovascular: Negative for chest pain, palpitations, and edema, Respiratory: + for cough 12:47 Back: Negative for injury and pain, : Negative for injury, bleeding, discharge, and swelling, MS/Extremity: Negative for injury and deformity, Neuro: Negative for headache, weakness, numbness, tingling, and seizure. 12:47 Abdomen/GI: Positive for nausea, vomiting, and diarrhea. Exam: 12:47 Constitutional: This is a well developed, well nourished patient who is awake, alert, la1 and in no acute distress. Head/Face: Normocephalic, atraumatic. ENT: Nares patent. No nasal discharge, no septal abnormalities noted. Tympanic membranes are normal and external auditory canals are clear. Oropharynx with no redness, swelling, or masses, exudates, or evidence of obstruction, uvula midline. Mucous membranes moist. Neck: Trachea midline, no thyromegaly or masses palpated, and no cervical lymphadenopathy. Supple, full range of motion without nuchal rigidity, or vertebral point tenderness. No Meningismus. Chest/axilla: Normal chest wall appearance and motion. Nontender with no deformity. No lesions are appreciated. Cardiovascular: Regular rate and rhythm with a normal S1 and S2. No gallops, murmurs, or rubs. Normal PMI, no JVD. No pulse deficits. Respiratory: Lungs have equal breath sounds bilaterally, clear to auscultation Abdomen/GI: Soft, non-tender, with normal bowel sounds. No distension or tympany. No guarding or rebound. No evidence of tenderness throughout. Back: No spinal tenderness. No costovertebral tenderness. Full range of motion. Skin: Warm, dry with normal turgor. Normal color with no rashes, no lesions, and no evidence of cellulitis. Vital Signs: 11:50 BP 150 / 106; Pulse 71; Resp 18; Temp 98.6; Pulse Ox 99% on R/A; Weight 122.47 kg; dm5 Height 5 ft. 9 in. (175.26 cm); Pain 0/10; 11:50 Body Mass Index 39.87 (122.47 kg, 175.26 cm) dm5 MDM: 11:47 Patient medically screened. la1 12:48 Data reviewed: vital signs, nurses notes, lab test result(s), and as a result, I will la1 discharge patient. Data interpreted: Pulse oximetry: on room air is 99 %. Interpretation: normal. Counseling: I had a detailed discussion with the patient and/or guardian regarding: the historical points, exam findings, and any diagnostic results supporting the discharge/admit diagnosis, lab results, the need for outpatient follow up, a family practitioner, to return to the emergency department if symptoms worsen or persist or if there are any questions or concerns that arise at home. Special discussion: Based on the patient's history, exam, and Dx evaluation, there is no indication for emergent intervention or inpatient Tx. It is understood by the patient/guardian that if the Sx's persist or worsen they need to return immediately for re-evaluation. I discussed with the patient/guardian that the patient's current presentation does not indicate dosing of antibiotics. They should follow-up with their primary care provider and return if the symptoms persist or progress. ED course: pt appears non-toxic, tolerating PO, no resp distress. Will D/C with nausea meds. 12:49 Special discussion: I have referred the patient to see his PCP for further evaluation la1 of high blood pressure. 12/11 11:53 Order name: Flu la1 12/11 11:55 Order name: PO challenge; Complete Time: 12:16 la1 Administered Medications: 12:20 Drug: Zofran (Ondansetron) 4 mg Route: PO; ss 12:56 Follow up: Response: No adverse reaction; Nausea is decreased ss Disposition: 18:00 Co-signature as Attending Physician, Ricky Garcia MD I agree with the assessment and kdr plan of care. Disposition: 12/12/19 12:49 Discharged to Home. Impression: Nausea and vomiting, Cough. - Condition is Stable. - Discharge Instructions: Cough, Adult, Rehydration, Adult. - Prescriptions for Zofran 4 mg Oral Tablet - take 1 tablet by ORAL route every 12 hours As needed; 20 tablet. - Medication Reconciliation Form, Thank You Letter, Work release form form. - Follow up: Private Physician; When: 2 - 3 days; Reason: Recheck today's complaints, Re-evaluation by your physician. - Problem is new. - Symptoms have improved. Signatures: Dispatcher [employer] EDMS Ricky Garcia MD MD [facility] Dasha Soto RN RN ss Christiano Luther, LAY MIDWIFE-C LAY MIDWIFE-Cla1 Corrections: (The following items were deleted from the chart) 12:57 12:49 12/12/2019 12:49 Discharged to Home. Impression: Nausea and vomiting; Cough. ss Condition is Stable. Forms are Medication Reconciliation Form, Thank You Letter, Antibiotic Education, Prescription Opioid Use. Follow up: Private Physician; When: 2 - 3 days; Reason: Recheck today's complaints, Re-evaluation by your physician. Problem is new. Symptoms have improved. la1
[2019-12-12 13:22] VITALS: BP 150/106; TEMP 98.6; O2SAT 99
== END 2019-12-12 12:57 | disposition home or self-care (01) ==
LOC: ER 11:21
DX: R05 Cough (principal); I10 Essential (primary) hypertension; Z95.818 Presence of other cardiac implants and grafts
CPT/HCPCS: 87804; 99283

== ENCOUNTER 2020-04-21 15:50 | Emergency (ER) | payer OTHER ==
--- NOTE | 2020-04-21 16:46 | ER ---
Nurse's Notes [facility] Name: Hayden Armando Age: 44 yrs Sex: Male : 1975 Arrival Date: 04/21/2020 Time: 15:55 Bed 24 Private MD: Diagnosis: Low back pain Presentation: 04/21 16:15 Chief complaint: Patient states: Low back pain radiates to left leg, had spinal fusion jl7 02-24-2020 and reports "I just can't stand the pain today.". Coronavirus screen: Patient denies a cough. Patient denies shortness of breath or difficulty breathing. Patient denies measured and/or subjective temperature greater than 100.4F prior to today's visit. Patient denies travel on a cruise ship or to a country the [facility] currently lists as an affected area. Patient denies contact with known and/or suspected case of COVID-19. Proceed with normal triage. Ebola Screen: No symptoms or risks identified at this time. Initial Sepsis Screen: Does the patient meet any 2 criteria? No. Patient's initial sepsis screen is negative. Does the patient have a suspected source of infection? No. Patient's initial sepsis screen is negative. Risk Assessment: Do you want to hurt yourself or someone else? Patient reports no desire to harm self or others. Onset of symptoms is unknown. Care prior to arrival: None. Transition of care: patient was not received from another setting of care. 16:15 Method Of Arrival: Ambulatory [facility] 16:15 Acuity: FREDI 4 jl7 Triage Assessment: 16:17 General: Appears in no apparent distress. uncomfortable, Behavior is calm, cooperative, jl7 appropriate for age. Pain: Complains of pain in back and left leg Pain currently is 10 out of 10 on a pain scale. Musculoskeletal: Range of motion: limited in left hip and right hip. Historical: - Allergies: 16:17 No Known Allergies; jl7 - PMHx: 16:17 5 cardiac stents; Hypertension; Myocardial infarction; jl7 - PSHx: 16:17 spinal fusion; jl7 - Immunization history:: Adult Immunizations unknown. - Social history:: Smoking status: Patient denies any tobacco usage or history of. Screenin:57 Abuse screen: Denies threats or abuse. Nutritional screening: No deficits noted. vc Tuberculosis screening: No symptoms or risk factors identified. Fall Risk None identified. Assessment: 16:57 General: Appears in no apparent distress. uncomfortable, Behavior is calm, cooperative, vc appropriate for age. Pain: Complains of pain in lumbar area Pain radiates to right hip and left hip Pain currently is 10 out of 10 on a pain scale. Quality of pain is described as sharp, shooting. Pain: Noted to be grimacing, guarding, resistant to movement. Neuro: Level of Consciousness is awake, alert, obeys commands, Oriented to person, place, time, situation, Appropriate for age. Cardiovascular: Capillary refill < 3 seconds Clubbing of nail beds is absent Patient's skin is warm and dry. Respiratory: Airway is patent Respiratory effort is even, unlabored, Respiratory pattern is regular, symmetrical. GI: No signs and/or symptoms were reported involving the gastrointestinal system. : No signs and/or symptoms were reported regarding the genitourinary system. Musculoskeletal: Reports pain in lumbar area. 16:57 Reassessment: Patient to be discharged after shot time. vc 17:22 Reassessment: Patient appears in no apparent distress at this time. Patient and/or vc family updated on plan of care and expected duration. Pain level reassessed. Patient is alert, oriented x 3, equal unlabored respirations, skin warm/dry/pink. Patient states feeling better. Patient states symptoms have improved. Vital Signs: 16:15 BP 163 / 105; Pulse 91; Resp 17; Temp 98.4; Pulse Ox 99% ; Weight 123.38 kg; Height 5 jl7 ft. 9 in. (175.26 cm); Pain 10/10; 16:15 Body Mass Index 40.17 (123.38 kg, 175.26 cm) jl7 ED Course: 15:55 Patient arrived in ED. mr 16:14 Enrrique Martinez, RN is Primary Nurse. jl7 16:17 Triage completed. jl7 16:17 Arm band placed on right wrist. jl7 16:38 Nguyen Williamson FNP-C is PHCP. kb 16:38 Josh Mojica MD is Attending Physician. kb 16:39 Micah Rodriguez, HEATHER is Primary Nurse. ll1 16:57 Patient has correct armband on for positive identification. Bed in low position. Call vc light in reach. 16:57 No provider procedures requiring assistance completed. Patient did not have IV access vc during this emergency room visit. Administered Medications: 16:57 Drug: [place] 10 mg-325 mg 1 tabs Route: PO; vc 17:22 Follow up: Response: No adverse reaction vc 16:57 Drug: TORadol 30 mg Route: IM; Site: left deltoid; vc 17:22 Follow up: Response: No adverse reaction vc Outcome: 16:46 Discharge ordered by . анна 17:22 Discharged to home ambulatory. vc 17:22 Condition: good 17:22 Discharge instructions given to patient, Instructed on discharge instructions, follow up and referral plans. no drinking with medication, no driving heavy equipment, medication usage, Demonstrated understanding of instructions, follow-up care, medications, Prescriptions given X 2. 17:22 Patient left the ED. vc Signatures: Nguyen Williamson, HAMID[employer] AGRISCIENCE TECHNOLOGY INSTRUCTOR-Lala An Enrrique Martinez RN RN jl7 Leilani Fraser RN RN vc Lewis, Lynsay RN RN ll1
--- NOTE | 2020-04-21 16:46 | EDPHYS ---
Physician Documentation [facility] Name: Hayden Armando Age: 44 yrs Sex: Male : 1975 Arrival Date: 04/21/2020 Time: 15:55 Bed 24 Private MD: ED Physician Josh Mojica HPI: 04/21 16:44 This 44 yrs old Male presents to ER via Ambulatory with complaints of Back kb Pain. 16:44 The patient presents with pain that is acute. The symptoms are located in the low back. kb Onset: The symptoms/episode began/occurred 2 month(s) ago. The pain radiates to the right leg and left leg. Associated signs and symptoms: Pertinent negatives: constipation, incontinence, numbness, tingling, urinary retention. The problem was sustained without known cause. Modifying factors: The patient symptoms are alleviated by nothing, the patient symptoms are aggravated by any movement. Severity of symptoms: At their worst the symptoms were moderate, in the emergency department the symptoms are unchanged. The patient has not experienced similar symptoms in the past. The patient has not recently seen a physician. Pt reports he had a fusion done from L4-S1 with 4 screws placed at the end of January. States the pain over the last few days feels the same as the first day postop. States he has been taking the prescribed pain medication (gabapentin) without relief. Historical: - Allergies: 16:17 No Known Allergies; jl7 - PMHx: 16:17 5 cardiac stents; Hypertension; Myocardial infarction; jl7 - PSHx: 16:17 spinal fusion; jl7 - Immunization history:: Adult Immunizations unknown. - Social history:: Smoking status: Patient denies any tobacco usage or history of. ROS: 16:42 Constitutional: Negative for fever, chills, and weight loss, Cardiovascular: Negative kb for chest pain, palpitations, and edema, Respiratory: Negative for shortness of breath, cough, wheezing, and pleuritic chest pain, Abdomen/GI: Negative for abdominal pain, nausea, vomiting, diarrhea, and constipation, : Negative for injury, bleeding, discharge, and swelling, MS/Extremity: Negative for injury and deformity, Skin: Negative for injury, rash, and discoloration, Neuro: Negative for headache, weakness, numbness, tingling, and seizure. 16:42 Back: Positive for pain at rest, pain with movement, of the lumbar area and low back area. Exam: 16:42 Constitutional: This is a well developed, well nourished patient who is awake, alert, kb and in no acute distress. Head/Face: Normocephalic, atraumatic. Chest/axilla: Normal chest wall appearance and motion. Nontender with no deformity. No lesions are appreciated. Cardiovascular: Regular rate and rhythm with a normal S1 and S2. No gallops, murmurs, or rubs. Normal PMI, no JVD. No pulse deficits. Respiratory: Lungs have equal breath sounds bilaterally, clear to auscultation and percussion. No rales, rhonchi or wheezes noted. No increased work of breathing, no retractions or nasal flaring. Abdomen/GI: Soft, non-tender, with normal bowel sounds. No distension or tympany. No guarding or rebound. No evidence of tenderness throughout. Skin: Warm, dry with normal turgor. Normal color with no rashes, no lesions, and no evidence of cellulitis. MS/ Extremity: Pulses equal, no cyanosis. Neurovascular intact. Full, normal range of motion. Neuro: Awake and alert, GCS 15, oriented to person, place, time, and situation. Cranial nerves II-XII grossly intact. Motor strength 5/5 in all extremities. Sensory grossly intact. Cerebellar exam normal. Normal gait. 16:42 Back: pain, that is moderate, ROM is painful, normal spinal alignment noted, vertebral tenderness, is not appreciated, surgical incision well healed. Vital Signs: 16:15 BP 163 / 105; Pulse 91; Resp 17; Temp 98.4; Pulse Ox 99% ; Weight 123.38 kg; Height 5 jl7 ft. 9 in. (175.26 cm); Pain 10/10; 16:15 Body Mass Index 40.17 (123.38 kg, 175.26 cm) jl7 MDM: 16:38 Patient medically screened. kb 16:42 Data reviewed: vital signs, nurses notes. Data interpreted: Pulse oximetry: on room air kb is 99 %. Interpretation: normal. Counseling: I had a detailed discussion with the patient and/or guardian regarding: the historical points, exam findings, and any diagnostic results supporting the discharge/admit diagnosis, the need for outpatient follow up, a family practitioner, to return to the emergency department if symptoms worsen or persist or if there are any questions or concerns that arise at home. Administered Medications: 16:57 Drug: Meridian 10 mg-325 mg 1 tabs Route: PO; vc 17:22 Follow up: Response: No adverse reaction vc 16:57 Drug: TORadol 30 mg Route: IM; Site: left deltoid; vc 17:22 Follow up: Response: No adverse reaction vc Disposition: 17:40 Co-signature as Attending Physician, Josh Mojica MD. rn Disposition: 04/21/20 16:46 Discharged to Home. Impression: Low back pain. - Condition is Stable. - Discharge Instructions: Back Injury Prevention, [id number], Back Pain, Adult, [id number]. - Prescriptions for Tramadol 50 mg Oral Tablet - take 1 tablet by ORAL route every 8 hours as needed; 12 tablet. orphenadrine citrate 100 mg Oral Tablet Sustained Release - take 1 tablet by ORAL route 2 times per day As needed; 20 tablet. - Medication Reconciliation Form, Thank You Letter, Antibiotic Education, Prescription Opioid Use form. - Follow up: Emergency Department; When: As needed; Reason: Worsening of condition. Follow up: Private Physician; When: 2 - 3 days; Reason: Recheck today's complaints, Continuance of care, Re-evaluation by your physician. Signatures: Nguyen Williamson, [employer]-C [employer]-Ckb Josh Mojica MD MD rn Leal, Jahala, RN RN jl7 Leilani Fraser RN RN vc Corrections: (The following items were deleted from the chart) 17:22 16:46 04/21/2020 16:46 Discharged to Home. Impression: Low back pain. Condition is vc Stable. Forms are Medication Reconciliation Form, Thank You Letter, Antibiotic Education, Prescription Opioid Use. Follow up: Emergency Department; When: As needed; Reason: Worsening of condition. Follow up: Private Physician; When: 2 - 3 days; Reason: Recheck today's complaints, Continuance of care, Re-evaluation by your physician. kb
[2020-04-21] MEDS ORDERED: HYDROCODONE/APAP 10/325 TAB ONE (17:02)
[2020-04-21] MEDS ORDERED: KETOROLAC 30 MG/ML INJ ONE (17:02)
[2020-04-21 23:12] VITALS: BP 163/105; TEMP 98.4; O2SAT 99
== END 2020-04-21 17:22 | disposition home or self-care (01) ==
LOC: ER 15:50
DX: M54.5 Low back pain (principal)
CPT/HCPCS: 96372; 99283

== ENCOUNTER 2020-04-29 18:11 | Emergency (ER) | payer OTHER, BC ==
--- NOTE | 2020-04-29 20:54 | RAD REPORT ---
EXAM DESCRIPTION: RAD - Chest Single View - 04/29/2020 8:47 pm CLINICAL HISTORY: COUGH Chest pain. COMPARISON: <Comparisons> FINDINGS: Portable technique limits examination quality. Subtle mildly prominent interstitial lung markings are seen. Interstitial/viral pneumonitis is suspec vero. The heart is normal in size. No displaced fractures.
--- NOTE | 2020-04-29 21:01 | ER ---
Nurse's Notes [facility] Name: Hayden Armando Age: 44 yrs Sex: Male : 1975 Arrival Date: 04/29/2020 Time: 18:14 Bed 16 Private MD: Diagnosis: Viral syndrome;Coronavirus infection, unspecified Presentation: 04/29 19:23 Chief complaint: Patient states: i have fever, dry cough and body ache since Sunday. i mg2 did a test for COVID last Sunday-pending result. Coronavirus screen: Client denies travel out of the [place] in the last 14 days. cough unrelated to allergies, fever. Ebola Screen: No symptoms or risks identified at this time. Initial Sepsis Screen: Does the patient meet any 2 criteria? No. Patient's initial sepsis screen is negative. Does the patient have a suspected source of infection? No. Patient's initial sepsis screen is negative. Risk Assessment: Do you want to hurt yourself or someone else? Patient reports no desire to harm self or others. Onset of symptoms was March 2020. 19:23 Method Of Arrival: Ambulatory mg2 19:23 Acuity: FREDI 4 mg2 Triage Assessment: 19:26 General: Appears in no apparent distress. comfortable, Behavior is calm, cooperative. mg2 Pain: Complains of pain in whole body. EENT: No signs and/or symptoms were reported regarding the EENT system. Neuro: Level of Consciousness is awake, alert, obeys commands, Oriented to person, place, time, situation. Cardiovascular: Capillary refill < 3 seconds Patient's skin is warm and dry. Respiratory: Reports cough that is Airway is patent Respiratory effort is even, unlabored, Respiratory pattern is regular, symmetrical. GI: No signs and/or symptoms were reported involving the gastrointestinal system. : No signs and/or symptoms were reported regarding the genitourinary system. Derm: Skin is intact, is healthy with good turgor, Skin is pink, warm \T\ dry. normal. Musculoskeletal: Circulation, motion, and sensation intact. Capillary refill < 3 seconds. Historical: - Allergies: 19:28 No Known Allergies; mg2 - PMHx: 19:28 5 cardiac stents; Hypertension; Myocardial infarction; mg2 - PSHx: 19:28 back sx; mg2 - Family history:: not pertinent. - Social history:: Smoking status: . - Hospitalizations: : No recent hospitalization is reported. Screenin:27 Abuse screen: Denies threats or abuse. Denies injuries from another. Nutritional mg2 screening: No deficits noted. Tuberculosis screening: No symptoms or risk factors identified. Fall Risk None identified. Assessment: 19:27 General: see triage assessment. mg2 20:42 Reassessment: Patient appears in no apparent distress at this time. Patient and/or mg2 family updated on plan of care and expected duration. Pain level reassessed. Patient is alert, oriented x 3, equal unlabored respirations, skin warm/dry/pink. Vital Signs: 19:23 BP 145 / 101; Pulse 85; Resp 18; Temp 97.9; Pulse Ox 98% on R/A; Height 5 ft. 9 in. mg2 (175.26 cm); 20:42 BP 139 / 97; Pulse 80; Resp 18; Pulse Ox 98% on R/A; mg2 21:13 BP 136 / 78; Pulse 81; Resp 18; Temp 98; Pulse Ox 99% on R/A; mg2 ED Course: 18:14 Patient arrived in ED. ag5 19:14 Josh Mojica MD is Attending Physician. rn 19:23 Froy Sherman, HEATHER is Primary Nurse. mg2 19:26 Triage completed. mg2 19:26 Arm band placed on. mg2 19:28 No provider procedures requiring assistance completed. Patient did not have IV access mg2 during this emergency room visit. 20:10 Patient has correct armband on for positive identification. mg2 20:10 Flu and/or RSV swab sent to lab. mg2 20:47 CXR XRAY In Process Unspecified. EDMS Administered Medications: No medications were administered Outcome: 21:01 Discharge ordered by . rn 21:13 Discharged to home ambulatory. mg2 21:13 Condition: stable 21:13 Discharge instructions given to patient, Instructed on discharge instructions, follow up and referral plans. Demonstrated understanding of instructions, follow-up care. 21:13 Patient left the ED. mg2 Signatures: Dispatcher [employer] EDMS Josh Mojica MD MD rn Gardose, Michele, RN RN mg2 ChariNicki ag5
--- NOTE | 2020-04-29 21:01 | EDPHYS ---
Physician Documentation [facility] Name: Hayden Armando Age: 44 yrs Sex: Male : 1975 Arrival Date: 04/29/2020 Time: 18:14 Bed 16 Private MD: ED Physician Josh Mojica HPI: 04/29 19:22 This 44 yrs old Male presents to ER via Unassigned with complaints of Fever, rn Cough. 19:22 The patient reports fever, that was measured at 101 degrees Fahrenheit. Onset: The rn symptoms/episode began/occurred. 19:22 Onset: The symptoms/episode began/occurred 5 day(s) ago. Modifying factors: there are rn no obvious modifying factors. Associated signs and symptoms: Pertinent positives: chills, cough, myalgias. Severity of symptoms: At their worst the symptoms were mild in the emergency department the symptoms are unchanged. The patient has not experienced similar symptoms in the past. The patient has been recently seen at an urgent care. Reports fever to 101, began 5-6 days ago, seen at urgent care a few days ago, tested for COVID-19, but notified today that unable to send test due to insurance. Comes here because wants to be tested for COVID-19, denies sob, just doesn't feel well. Given abx for ear infection. . Historical: - Allergies: 19:28 No Known Allergies; mg2 - PMHx: 19:28 5 cardiac stents; Hypertension; Myocardial infarction; mg2 - PSHx: 19:28 back sx; mg2 - Family history:: not pertinent. - Social history:: Smoking status: . - Hospitalizations: : No recent hospitalization is reported. ROS: 19:22 Constitutional: + fever Eyes: Negative for injury, pain, redness, and discharge, Neck: rn Negative for injury, pain, and swelling, Cardiovascular: Negative for chest pain, palpitations, and edema, Respiratory: + cough Abdomen/GI: + abd cramping, neg for vomiting/diarrhea MS/Extremity: Negative for injury and deformity, Skin: Negative for injury, rash, and discoloration, Neuro: Negative for numbness, tingling, and seizure. Exam: 19:22 Constitutional: This is a well developed, well nourished patient who is awake, alert, rn and in no acute distress. Head/Face: Normocephalic, atraumatic. ENT: No stridor Cardiovascular: Regular rate and rhythm Respiratory: Speaking full sentences, unlabored Skin: Dry without cyanosis Neuro: Awake and alert, GCS 15 Vital Signs: 19:23 BP 145 / 101; Pulse 85; Resp 18; Temp 97.9; Pulse Ox 98% on R/A; Height 5 ft. 9 in. mg2 (175.26 cm); 20:42 BP 139 / 97; Pulse 80; Resp 18; Pulse Ox 98% on R/A; mg2 21:13 BP 136 / 78; Pulse 81; Resp 18; Temp 98; Pulse Ox 99% on R/A; mg2 MDM: 19:14 Patient medically screened. rn 20:59 Differential diagnosis: viral Infection, bacterial infection, URI, pneumonia. Data rn reviewed: vital signs, nurses notes, lab test result(s), radiologic studies, plain films, and as a result, I will discharge patient. Counseling: I had a detailed discussion with the patient and/or guardian regarding: the historical points, exam findings, and any diagnostic results supporting the discharge/admit diagnosis, lab results, radiology results, the need for outpatient follow up, to return to the emergency department if symptoms worsen or persist or if there are any questions or concerns that arise at home. Special discussion: I discussed with the patient/guardian in detail that at this point there is no indication for admission to the hospital. It is understood, however, that if the symptoms persist or worsen the patient needs to return immediately for re-evaluation. ED course: Pt without oxygen requirement, CXR with viral pattern, most likely COVID-19, will dc home with return precautions, and to follow quarantine procedure.. 21:01 Test interpretation: by ED physician or midlevel provider: plain radiologic studies, rn CXR with viral interstitial pattern, no pneumothorax or focal pneumonia. 04/29 19:21 Order name: COVID-19 rn 04/29 19:21 Order name: Flu; Complete Time: 20:55 rn 04/29 19:21 Order name: CXR XRAY; Complete Time: 21:02 rn 04/29 19:21 Order name: Droplet/Contact Precautions; Complete Time: 19:29 rn 04/29 19:21 Order name: Labs collected and sent; Complete Time: 19:29 rn 04/29 19:21 Order name: O2 Per Protocol; Complete Time: 19:29 rn Administered Medications: No medications were administered Disposition: 04/29/20 21:01 Discharged to Home. Impression: Viral syndrome, Coronavirus infection, unspecified. - Condition is Stable. - Discharge Instructions: COVID-19. - Medication Reconciliation Form, Thank You Letter, Antibiotic Education, Prescription Opioid Use form. - Follow up: Private Physician; When: As needed; Reason: Recheck today's complaints, Re-evaluation by your physician. - Problem is new. - Symptoms have improved. Signatures: Dispatcher [employer] EDMS Josh Mojica MD MD rn Gardose, Michele, RN RN mg2 Corrections: (The following items were deleted from the chart) 21:13 21:01 04/29/2020 21:01 Discharged to Home. Impression: Viral syndrome; Coronavirus mg2 infection, unspecified. Condition is Stable. Forms are Medication Reconciliation Form, Thank You Letter, Antibiotic Education, Prescription Opioid Use. Follow up: Private Physician; When: As needed; Reason: Recheck today's complaints, Re-evaluation by your physician. Problem is new. Symptoms have improved. rn
[2020-04-29 21:21] VITALS: BP 136/78; TEMP 98; O2SAT 99
== END 2020-04-29 21:13 | disposition home or self-care (01) ==
LOC: ER 18:11
DX: U07.1 COVID-19 (principal); B34.9 Viral infection, unspecified; I10 Essential (primary) hypertension; Z95.818 Presence of other cardiac implants and grafts
CPT/HCPCS: 87804 ×2; 71045; 99283; U0001